=== PATIENT | female | born 1985 | race Caucasian/White ===

== ENCOUNTER 2017-02-26 12:21 | Emergency (ER) | payer OTHER ==
[~2017-02-26] VITALS: Ht 162.6 cm; Wt 59.0 kg
[2017-02-26] MEDS ORDERED: SPRI28TA (12:34)
[2017-02-26] MEDS ORDERED: CLINDAMYCIN 150 MG CAP PO ONE (13:15)
[2017-02-26] MEDS ORDERED: IBUPROFEN 600 MG TAB PO ONE (14:15)
[2017-02-26] MEDS ORDERED: LIDOCAINE W/EPINEPHRINE 1% 20ML VIAL As Ordered ONE (14:27)
[2017-02-26] MEDS ORDERED: MORPHINE 2 MG/ML 1ML SYRINGE As Ordered ONE (14:27)
[2017-02-26] MEDS ORDERED: NORC1TAB4 PO (14:50)
[2017-02-26] MEDS ORDERED: CLEO300C2 PO (14:50)
[2017-02-26] MEDS ORDERED: PRED20TA PO (14:50)
[2017-02-26 15:00] VITALS: BP 141/88
[2017-02-26] MEDS ORDERED: LIDOCAINE W/EPINEPHRINE 1% 20ML VIAL SC ONE (15:00)
[2017-02-26] MEDS ORDERED: methylPREDNISolone INJ 125 MG/2 ML VIAL (J2930) IV ONE (15:00)
--- NOTE | 2017-02-26 21:35 | RO ---
DATE OF PROCEDURE IN THE ER: 02/26/2017 PREPROCEDURE DIAGNOSIS: Right peritonsillar abscess. POSTPROCEDURE DIAGNOSIS: Right peritonsillar abscess. OPERATIVE PROCEDURE: Incision and drainage. SURGEON: Tk Price MD GRAPHICS EDIT TECHNICIAN: ANESTHESIA: HISTORY: Humza Zaragoza is a 32-year-old female presents with a history of sore throat which has been going on for a week. She was managing it just with ibuprofen. She has not had a previous problem with this. It is worse on the right side. It does hurt and is worse when it swallows. She has no fever. Otherwise she is healthy. Examinations shows that there is swelling of the right peritonsillar area. I infiltrated the area with lidocaine and epinephrine. I did an aspiration. There was pus in the area so I did an incision and drainage and drained a small amount of purulent fluid from the area. The patient was discharged after recieving IV steroids and clindamycin. Discharged home on oral clindamycin and some steroids. The patient to return if the problem persists.
== END 2017-02-26 15:09 | disposition home or self-care (01) ==
LOC: M ED 13:37
DX: J36 Peritonsillar abscess (principal)

== ENCOUNTER 2017-07-16 17:10 | Emergency (ER) | payer OTHER ==
[~2017-07-16] VITALS: Ht 162.6 cm; Wt 61.3 kg
[~2017-07-16 17:10] MED LIST: CLEO300C2 PO; NORC1TAB4 PO; PRED20TA PO; SPRI28TA
[2017-07-16] MEDS ORDERED: ZYRT10CA PO (17:26)
[2017-07-16] MEDS ORDERED: ACET1TAB17 PO (17:26)
[2017-07-16 19:32] LABS: BASO % 0.5 % (0.0-1.0); EOS # 0.3 K/mm3 (0.0-0.50); EOS % 5.3 % (0.0-3.0); LARGE UNSTAINED CELL # 0.1 K/mm3 (0.0-0.4); LARGE UNSTAINED CELL % 2.3 % (0.0-4.0); LYMPH # 2.1 K/mm3 (1.5-4.5); LYMPH % 36.3 % (24.0-44.0); MEAN CORPUSCULAR HEMOGLOBIN 32.5 pg (27.0-33.0); MEAN CORPUSCULAR HGB CONC 34.4 g/dl (32.0-36.5); MEAN CORPUSCULAR VOLUME 94.5 fl (80.0-96.0); MONO # 0.3 K/mm3 (0.0-0.8); MONO % 4.3 % (0.0-5.0); NEUTROPHILS % 51.3 % (36.0-66.0); PLATELET COUNT, AUTOMATED 294 k/mm3 (150-450); RED CELL DISTRIBUTION WIDTH 11.6 % (11.5-14.5); WHITE BLOOD COUNT 5.8 K/mm3 (4.0-10.0)
[2017-07-16 20:43] VITALS: BP 116/58
== END 2017-07-16 20:44 | disposition home or self-care (01) ==
LOC: M ED 17:10
DX: N93.9 Abnormal uterine and vaginal bleeding, unspecified (principal); J30.2 Other seasonal allergic rhinitis

== ENCOUNTER → 2017-09-20 | Outpatient (CLI) | payer OTHER ==
[~2017-09-20] MED LIST changes: +ACET1TAB17 PO; +ZYRT10CA PO
[2017-09-20 17:59] LABS: BASO % 0.3 % (0.0-1.0); EOS # 0.2 10^3/uL (0.0-0.50); EOS % 1.8 % (0.0-3.0); IMMATURE GRANULOCYTE % 0.4 % (0-0); LYMPH # 1.9 10^3/uL (1.5-4.5); LYMPH % 17.3 % (24.0-44.0); MEAN CORPUSCULAR HEMOGLOBIN 31.7 pg (27.0-33.0); MEAN CORPUSCULAR HGB CONC 33.6 g/dl (32.0-36.5); MEAN CORPUSCULAR VOLUME 94.5 fl (80.0-96.0); MONO # 0.6 10^3/uL (0.0-0.8); MONO % 5.8 % (0.0-5.0); NEUTROPHILS # 8.1 10^3/uL (1.8-7.7); NEUTROPHILS % 74.4 % (36.0-66.0); PLATELET COUNT, AUTOMATED 306 10^3/uL (150-450); RED CELL DISTRIBUTION WIDTH 11.5 % (11.5-14.5); WHITE BLOOD COUNT 10.9 10^3/uL (4.0-10.0)
[2017-09-23 10:52] LABS: HBsAg Prenatal NEGATIVE (NEGATIVE)
== END ==
LOC: M SMT 11:36
PROVIDERS: ATTEND Advanced Practice Midwife
DX: Z3A.09 9 weeks gestation of pregnancy (principal)

== ENCOUNTER → 2017-11-22 | Outpatient (CLI) | payer OTHER | LOC: M SMT 14:49 | DX: Z34.82 Encounter for supervision of other normal pregnancy, second trimester (principal); Z3A.18 18 weeks gestation of pregnancy ==

== ENCOUNTER → 2017-12-04 | Outpatient (CLI) | payer OTHER ==
[2017-12-04 18:58] LABS: HEMOGLOBIN 11.7 g/dl (12.0-16.0); MEAN CORPUSCULAR HGB CONC 33.4 g/dl (32.0-36.5); MEAN CORPUSCULAR VOLUME 95.6 fl (80.0-96.0); PLATELET COUNT, AUTOMATED 263 10^3/uL (150-450); RED BLOOD COUNT 3.66 10^6/uL (4.00-5.40); WHITE BLOOD COUNT 10.8 10^3/uL (4.0-10.0)
[2017-12-04 19:09] LABS: ALT/SGPT 24 U/L (12-78); AST/SGOT 13 U/L (7-37); BILIRUBIN,TOTAL 0.1 MG/DL (0.2-1.0); CREATININE FOR GFR 0.54 MG/DL (0.55-1.02); GLOMERULAR FILTRATION RATE > 60.0 (>60); LDH LACTATE DEHYDROGENASE 169 U/L (84-246); URIC ACID 2.8 MG/DL (2.6-6.0)
[2017-12-04 19:25] LABS: TOTAL PROTEIN,RANDOM URINE 11.2 MG/DL (0.0-12.0)
[2017-12-04 19:25] LABS: CREATININE,RANDOM URINE 67.3 MG/DL
== END ==
LOC: M SMT 13:36
DX: O16.2 Unspecified maternal hypertension, second trimester (principal); Z3A.21 21 weeks gestation of pregnancy
CPT/HCPCS: 84460

== ENCOUNTER → 2017-12-20 | Outpatient (CLI) | payer OTHER | LOC: M SMT 15:08 | DX: O46.8X2 Other antepartum hemorrhage, second trimester (principal); Z3A.23 23 weeks gestation of pregnancy ==

== ENCOUNTER → 2018-01-21 | Outpatient (CLI) | payer OTHER ==
[2018-01-21 19:19] LABS: HEMATOCRIT 30.2 % (36.0-47.0); HEMOGLOBIN 10.2 g/dl (12.0-16.0); MEAN CORPUSCULAR HEMOGLOBIN 32.3 pg (27.0-33.0); MEAN CORPUSCULAR HGB CONC 33.8 g/dl (32.0-36.5); MEAN CORPUSCULAR VOLUME 95.6 fl (80.0-96.0); PLATELET COUNT, AUTOMATED 221 10^3/uL (150-450); RED BLOOD COUNT 3.16 10^6/uL (4.00-5.40); RED CELL DISTRIBUTION WIDTH 11.9 % (11.5-14.5); WHITE BLOOD COUNT 10.3 10^3/uL (4.0-10.0)
[2018-01-21 19:38] LABS: GLUCOSE CHALLENGE TEST 1 HOUR 122 MG/DL (LESS THAN 140)
[2018-01-22 09:15] LABS: RH ONLY RHOGAM 1 1
== END ==
LOC: M SMT 14:15
DX: Z34.82 Encounter for supervision of other normal pregnancy, second trimester (principal)
CPT/HCPCS: 82950

== ENCOUNTER → 2018-02-11 | Outpatient (CLI) | payer OTHER | LOC: M SMT 14:46 | DX: O43.892 Other placental disorders, second trimester (principal); Z3A.30 30 weeks gestation of pregnancy ==

== ENCOUNTER → 2018-03-25 | Outpatient (REF) | payer OTHER | LOC: M LAB REF 16:54 | DX: Z34.83 Encounter for supervision of other normal pregnancy, third trimester (principal) | CPT/HCPCS: 87081; 87186 ==

== ENCOUNTER 2018-04-22 00:29 | Inpatient (IN) | payer OTHER ==
[2018-04-22] MEDS: LR 1,000 ML IV (01:11)
[2018-04-22] MEDS: LACTATED RINGER'S 1000 ML IV (01:11)
[2018-04-22] MEDS: PENICILLIN G POTASSIUM IV 5 MU in D5W MINI-BAG PLUS 100 ML IV (01:11)
[2018-04-22 01:50] LABS: HEMOGLOBIN 10.8 g/dl (12.0-15.5); MEAN CORPUSCULAR HEMOGLOBIN 32.9 pg (27.0-33.0); MEAN CORPUSCULAR HGB CONC 33.8 g/dl (32.0-36.5); MEAN CORPUSCULAR VOLUME 97.6 fl (80.0-96.0); PLATELET COUNT, AUTOMATED 182 10^3/uL (150-450); RED BLOOD COUNT 3.28 10^6/uL (4.00-5.40); RED CELL DISTRIBUTION WIDTH 12.4 % (11.5-14.5); WHITE BLOOD COUNT 11.7 10^3/uL (4.0-10.0)
[2018-04-22 02:10] LABS: AMPHETAMINES URINE REFLEX NEGATIVE (NEGATIVE); BARBITURATES URINE REFLEX NEGATIVE (NEGATIVE); BENZODIAZEPINES URINE REFLEX NEGATIVE (NEGATIVE); CANNABINOIDS URINE REFLEX NEGATIVE (NEGATIVE); COCAINE METABOLITE URINE REFLE NEGATIVE (NEGATIVE); METHADONE URINE REFLEX NEGATIVE (NEGATIVE); OPIATES URINE REFLEX NEGATIVE (NEGATIVE); PHENCYCLIDINE URINE REFLEX NEGATIVE (NEGATIVE)
[2018-04-22 02:16] LABS: ALT/SGPT 17 U/L (12-78); AST/SGOT 15 U/L (7-37); BILIRUBIN,TOTAL 0.1 MG/DL (0.2-1.0); CREATININE FOR GFR 0.58 MG/DL (0.55-1.30); GLOMERULAR FILTRATION RATE > 60.0 (>60); LDH LACTATE DEHYDROGENASE 156 U/L (84-246)
[2018-04-22] MEDS ORDERED: FENTANYL 2MCG/ML ROPIVACAINE 0.2% IN 0.9% NACL 200ML IVBAG As Ordered (03:12)
[2018-04-22] MEDS ORDERED: FENTANYL/ROPIVACAINE/NACL BAG 200 ML EPIDURAL (03:44)
[2018-04-22] MEDS ORDERED: REFRIGERATOR IV KEYS XX (03:44)
[2018-04-22] MEDS ORDERED: EPIDURAL/PCA KEYS XX (03:44)
[2018-04-22] MEDS ORDERED: ePHEDrine SULFATE 25 MG/5 ML(5MG/ML) SYRINGE IV (03:44)
[2018-04-22] MEDS ORDERED: EPIDURAL COMMENT XX (03:44)
[2018-04-22] MEDS ORDERED: diphenhydrAMINE INJ 50MG/ML VIAL (J1200) IV (03:44)
[2018-04-22] MEDS ORDERED: ONDANSETRON 4MG/2ML VIAL (J2405) IV (03:44)
[2018-04-22] MEDS ORDERED: NALOXONE INJ 0.4 MG/1 ML VIAL (J2310) IV (03:44)
[2018-04-22] MEDS ORDERED: LACTATED RINGER'S 1000 ML IV (03:44)
[2018-04-22] MEDS ORDERED: ePHEDrine SULFATE 25 MG/5 ML(5MG/ML) SYRINGE As Ordered (04:25)
[2018-04-22] MEDS: PENICILLIN G POTASSIUM IV 2.5 MU in APPROPRIATE DILUENT 1 EA IV ×2 (04:47→08:59)
[2018-04-22] MEDS ORDERED: OXYTOCIN 30 UNITS IN 0.9% NaCl 500ML IV BAG (J2590) As Ordered (09:06)
[2018-04-22] MEDS ORDERED: OXYTOCIN DRIP 30 UNITS in APPROPRIATE DILUENT 1 EA IV (09:45)
[2018-04-22 11:49] LABS: CORD GAS ABE V -8.4; CORD GAS HCO3 V 19.4 MEQ/L; CORD GAS O2 SAT V 42.3 %; CORD GAS PCO2 V 48.5 mmHg; CORD GAS PH V 7.221 UNITS; CORD GAS PO2 V 23.4 mmHg; CORD GAS SBC V 16.6 MEQ/L; CORD GAS TCO2 V 20.9 MEQ/L
[2018-04-22 11:52] LABS: CORD GAS O2 SAT A 31.5 %; CORD GAS PCO2 A 62.1 mmHg; CORD GAS PH A 7.146 UNITS; CORD GAS PO2 A 21.1 mmHg; CORD GAS SBC A 15.9 MEQ/L; CORD GAS TCO2 A 22.9 MEQ/L
[2018-04-22] MEDS: OXYTOCIN DRIP 30 UNITS in APPROPRIATE DILUENT 1 EA IV (12:37)
[2018-04-22] MEDS ORDERED: MOM 30ML SUSPENSION UDC PO (12:45)
[2018-04-22] MEDS ORDERED: MEASLES,MUMPS,RUBELLA VACCINE INJ (MMR-II) (90707) SC (12:45)
[2018-04-22] MEDS ORDERED: ANUSOL HC CREAM 30GM TOP (12:45)
[2018-04-22] MEDS ORDERED: DIBUCAINE 1% OINTMENT 30GM TOP (12:45)
[2018-04-22] MEDS ORDERED: METHYLERGONOVINE MALEATE 0.2 MG TAB PO (12:45)
[2018-04-22] MEDS ORDERED: DOCUSATE SODIUM 100 MG CAP PO (12:45)
[2018-04-23] MEDS: IBUPROFEN 800 MG TAB PO (08:00)
[2018-04-23] MEDS: PRENATAL VITAMINS CHEWABLE TABLET PO (08:00)
[2018-04-23] MEDS: ACETAMINOPHEN 500 MG TAB PO ×2 (09:42→20:20)
[2018-04-23 14:02] LABS: FETAL SCREEN PROF. 1 1
[2018-04-23] MEDS: RHOGAM 300 MCG (1500 IU) INJ (J2790) IM (14:14)
[2018-04-24] MEDS: ACETAMINOPHEN 500 MG TAB PO (03:21)
[2018-04-24] MEDS: PRENATAL VITAMINS CHEWABLE TABLET PO (08:03)
[2018-04-24] MEDS: ADACEL/BOOSTRIX VACCINE (DIPHTH/PERTUSS/ACELL/TETANUS)0.5ML SYR (90715) IM (08:04)
== END 2018-04-24 10:30 | disposition home or self-care (01) | DRG 775 ==
LOC: M LDO 00:29 → M LDI 01:04 → M OBS 14:41
PROC: 10E0XZZ Delivery of Products of Conception, External Approach (ICD-10-PCS; principal; 2018-04-22)
PROC: 0HQ9XZZ Repair Perineum Skin, External Approach (ICD-10-PCS; 2018-04-22)
DX: O48.0 Post-term pregnancy (principal); O99.824 Streptococcus B carrier state complicating childbirth; Z3A.40 40 weeks gestation of pregnancy; O70.0 First degree perineal laceration during delivery; Z37.0 Single live birth

== ENCOUNTER → 2019-03-09 | Outpatient (REF) | payer OTHER ==
[~2019-03-09] MED LIST changes: -ACET1TAB17 PO; +ACET1TAB55 PO; +FERR325T3 PO; +IBUP-1114 PO; +MAPA500T2 PO; -NORC1TAB4 PO; +NORC1TAB7 PO; +PRENTAB55 PO; +VITA1TAB23 PO
[2019-03-11 14:34] LABS: HPV HYBRID CAPTURE II Negative (Negative)
== END ==
LOC: M LAB REF 17:16
PROVIDERS: ATTEND Obstetrics & Gynecology
DX: Z12.4 Encounter for screening for malignant neoplasm of cervix (principal)
CPT/HCPCS: 87624; G0123

== ENCOUNTER → 2019-05-12 | Outpatient (REF) | payer OTHER ==
[2019-05-12 12:01] LABS: BASO % 0.7 % (0.0-1.0); EOS # 0.2 10^3/uL (0.0-0.50); EOS % 2.6 % (0.0-3.0); HEMOGLOBIN 13.4 g/dl (12.0-15.5); LYMPH % 34.2 % (24.0-44.0); MEAN CORPUSCULAR HEMOGLOBIN 32.1 pg (27.0-33.0); MEAN CORPUSCULAR HGB CONC 32.7 g/dl (32.0-36.5); MEAN CORPUSCULAR VOLUME 98.1 fl (80.0-96.0); MONO # 0.4 10^3/uL (0.0-0.8); MONO % 6.1 % (0.0-5.0); NEUTROPHILS # 3.2 10^3/uL (1.8-7.7); NEUTROPHILS % 56.2 % (36.0-66.0); PLATELET COUNT, AUTOMATED 280 10^3/uL (150-450); RED BLOOD COUNT 4.18 10^6/uL (4.00-5.40); WHITE BLOOD COUNT 5.7 10^3/uL (4.0-10.0)
[2019-05-12 12:28] LABS: ALBUMIN 3.8 GM/DL (3.2-5.2); ALT/SGPT 22 U/L (12-78); BILIRUBIN,TOTAL 0.4 MG/DL (0.2-1.0); BLOOD UREA NITROGEN 14 MG/DL (7-18); CALCIUM LEVEL 9.2 MG/DL (8.5-10.1); CARBON DIOXIDE LEVEL 28 MEQ/L (21-32); CHLORIDE LEVEL 106 MEQ/L (98-107); CREATININE FOR GFR 0.86 MG/DL (0.55-1.30); GLOMERULAR FILTRATION RATE > 60.0 (>60); GLUCOSE, FASTING 86 MG/DL (70-100); POTASSIUM SERUM 4.5 MEQ/L (3.5-5.1); SODIUM LEVEL 139 MEQ/L (136-145); TOTAL PROTEIN 7.9 GM/DL (6.4-8.2)
[2019-05-13 10:37] LABS: HEPATITIS B SURFACE ANTIBODY NEGATIVE (POSITIVE)
[2019-05-13 10:47] LABS: HEPATITIS B SURFACE ANTIGEN NEGATIVE (NEGATIVE)
[2019-05-13 11:16] LABS: HEPATITIS C VIRUS ABY INDEX 0.1 INDEX (<0.8)
== END ==
LOC: M LABDRAWC 11:25
PROVIDERS: ATTEND Dermatology
DX: Z79.899 Other long term (current) drug therapy (principal); D22.5 Melanocytic nevi of trunk; L81.4 Other melanin hyperpigmentation; D18.01 Hemangioma of skin and subcutaneous tissue; Z71.89 Other specified counseling; L40.0 Psoriasis vulgaris

== ENCOUNTER → 2020-06-14 | Outpatient (REF) | payer OTHER ==
[~2020-06-14] MED LIST changes: +ASCO250T20 PO; -VITA1TAB23 PO
[2020-07-11 12:34] LABS: HEMATOCRIT 39.3 % (36.0-47.0); HEMOGLOBIN 12.8 g/dl (12.0-15.5); MEAN CORPUSCULAR HEMOGLOBIN 31.9 pg (27.0-33.0); MEAN CORPUSCULAR HGB CONC 32.6 g/dl (32.0-36.5); PLATELET COUNT, AUTOMATED 275 10^3/uL (150-450); RED BLOOD COUNT 4.01 10^6/uL (4.00-5.40); WHITE BLOOD COUNT 6.9 10^3/uL (4.0-10.0)
[2020-08-30 11:52] LABS: GLUCOSE, FASTING SEE SEPARATE REPORT
== END ==
LOC: M LABDRAWC 08:44
PROVIDERS: ATTEND Physician Assistant
DX: Z79.899 Other long term (current) drug therapy (principal)

== ENCOUNTER → 2020-09-28 | Outpatient (REF) | payer OTHER | LOC: M PLALAB 15:24 | PROVIDERS: ATTEND Specialist | DX: N92.6 Irregular menstruation, unspecified (principal) ==

== ENCOUNTER → 2020-09-30 | Outpatient (CLI) | payer OTHER | LOC: M PLALAB 08:13 | PROVIDERS: ATTEND Specialist | DX: N92.6 Irregular menstruation, unspecified (principal) ==

== ENCOUNTER → 2020-10-14 | Outpatient (CLI) | payer OTHER ==
[~2020-10-14] MED LIST changes: +ETAN50PE; +PRENTAB53 PO
== END ==
LOC: M LABSMTC 10:25
PROVIDERS: ATTEND Anesthesiology
DX: Z01.812 Encounter for preprocedural laboratory examination (principal); Z20.828 Contact with and (suspected) exposure to other viral communicable diseases

== ENCOUNTER 2020-10-18 09:02 | Day surgery (SDC) | payer OTHER ==
[~2020-10-18] VITALS: Ht 162.6 cm; Wt 72.5 kg
[~2020-10-18 09:02] MED LIST changes: +DOXYCYCLINE HYCLATE 100MG TABLET PO ONE; +LR 1,000 ML IV ONE; +RHOGAM 300 MCG (1500 IU) INJ (J2790) IM ONE
[2020-10-18 09:35] LABS: HEMATOCRIT 37.2 % (36.0-47.0); HEMOGLOBIN 12.1 g/dl (12.0-15.5); MEAN CORPUSCULAR HEMOGLOBIN 31.3 pg (27.0-33.0); MEAN CORPUSCULAR HGB CONC 32.5 g/dl (32.0-36.5); MEAN CORPUSCULAR VOLUME 96.1 fl (80.0-96.0); PLATELET COUNT, AUTOMATED 251 10^3/uL (150-450); RED BLOOD COUNT 3.87 10^6/uL (4.00-5.40); WHITE BLOOD COUNT 5.5 10^3/uL (4.0-10.0)
[2020-10-18] MEDS ORDERED: LIDOCAINE 2% 100MG/5ML SDV (FOR ANES.) As Ordered ONE (10:35)
[2020-10-18] MEDS ORDERED: dexameTHASONE 4 MG/ML 1ML VIAL (J1100 PER 1MG) As Ordered ONE (10:35)
[2020-10-18] MEDS ORDERED: ONDANSETRON 4MG/2ML VIAL As Ordered ONE (10:35)
[2020-10-18] MEDS ORDERED: propofoL 200 MG/20 ML VIAL As Ordered ONE (10:35)
[2020-10-18] MEDS ORDERED: MIDAZOLAM INJ 2MG/2ML VIAL (J2250 PER 1MG) As Ordered ONE (10:35)
[2020-10-18] MEDS ORDERED: METOCLOPRAMIDE INJ 10MG/2ML VIAL (J2765 PER 1) As Ordered ONE (10:35)
[2020-10-18] MEDS ORDERED: KETOROLAC 60MG 2ML VIAL As Ordered ONE (10:35)
[2020-10-18] MEDS ORDERED: fentaNYL 100 MCG/2 ML INJECTION (J3010) As Ordered ONE (10:35)
[2020-10-18] MEDS ORDERED: fentaNYL 100 MCG/2 ML INJECTION (J3010) IV PRN (12:30)
[2020-10-18] MEDS ORDERED: METOCLOPRAMIDE INJ 10MG/2ML VIAL (J2765 PER 1) IV PRN (12:30)
[2020-10-18] MEDS ORDERED: RHOGAM 300 MCG (1500 IU) INJ (J2790) IM ONE (12:30)
[2020-10-18] MEDS ORDERED: ONDANSETRON 4MG/2ML VIAL IV PRN (12:30)
[2020-10-18] MEDS ORDERED: PERCOCET 5MG/325MG TAB PO PRN (12:30)
[2020-10-18] MEDS ORDERED: LR 1,000 ML IV SCH ×2 (12:30)
[2020-10-18] MEDS ORDERED: ACETAMINOPHEN 500 MG TAB PO ONE (12:30)
[2020-10-18] MEDS ORDERED: DOXYCYCLINE HYCLATE 100MG TABLET PO ONE (12:30)
[2020-10-18 13:15] VITALS: BP 122/76
--- NOTE | 2020-10-18 13:29 | ROOPDOC ---
[facility] Report Of Operation Report of Operation DATE OF PROCEDURE: 10/18/20 PREPROCEDURE DIAGNOSES: embryonic demise, 7-8 weeks. POSTPROCEDURE DIAGNOSES: same. PROCEDURE: D+E+C. SURGEON: Gentry Morgan MD ANESTHESIA: general via LMA. ESTIMATED BLOOD LOSS: Approximately 20 mL. COMPLICATIONS: none FINDINGS: Moderate amount of POC's, normal uterus DESCRIPTION OF PROCEDURE: Patient was taken to the operating room and placed in dorsal lithotomy position. She was prepped and draped in sterile fashion. A speculum was placed in the vagina. The anterior lip of the cervix was grasped with a tenaculum. Cervix was dilated with tapered dilators. A #9 mm suction curet was placed through the internal os. Suction device was activated and the curette was gently rotated until products of conception were noted coming through the suction tubing. Sharp curettage was performed. The uterine cavity was deemed empty. . Good hemostasis was noted. Sponge and instrument counts are correct. The patient went to recovery room in stable condition. GENTRY MORGAN MD Oct 18, 2020 13:29
== END 2020-10-18 13:39 | disposition home or self-care (01) ==
LOC: M SDC 09:02
PROVIDERS: ATTEND Specialist
DX: O02.1 Missed abortion (principal)
CPT/HCPCS: 36415; 59820; 85027; 88305; J1100; J1885; J2250; J2405; J2765; J3010

== ENCOUNTER → 2021-01-08 | Outpatient (CLI) | payer OTHER ==
[~2021-01-08] MED LIST changes: -DOXYCYCLINE HYCLATE 100MG TABLET PO ONE; -LR 1,000 ML IV ONE; -RHOGAM 300 MCG (1500 IU) INJ (J2790) IM ONE
== END ==
LOC: M LAB 09:35
PROVIDERS: ATTEND Obstetrics & Gynecology
DX: Z32.00 Encounter for pregnancy test, result unknown (principal)

== ENCOUNTER → 2021-01-10 | Outpatient (CLI) | payer OTHER | LOC: M LAB 08:01 | PROVIDERS: ATTEND Advanced Practice Midwife | DX: O26.851 Spotting complicating pregnancy, first trimester (principal); Z3A.00 Weeks of gestation of pregnancy not specified ==

== ENCOUNTER → 2021-01-11 | Outpatient (CLI) | payer OTHER ==
--- NOTE | 2021-01-11 15:44 | REP ---
INDICATION: 020.0 THREATENED /VAG BLEEDING/RISING HCG COMPARISON: None. TECHNIQUE: Transabdominal 1st trimester obstetrical ultrasound with color Doppler evaluation. FINDINGS: Single live early intrauterine is appreciated. Gestational sac with yolk sac and pole identified. [place]-rump length of 11 mm corresponds to 7 weeks 2 days gestational age with estimated date of delivery 08/28/2021. heart rate equals 146 beats per minute. Small subchorionic hemorrhage measuring 27 x 7 x 9 mm is suggested. IMPRESSION: Single live early intrauterine at 7 weeks 2 days gestational age. Complete anatomical assessment should be performed and 19-20 weeks. Small subchorionic hemorrhage. <Electronically signed by Rock Wylie > 01/11/21 [id number]
== END ==
LOC: M WHC 14:34
PROVIDERS: ATTEND Advanced Practice Midwife
DX: O20.0 Threatened abortion (principal); Z3A.01 Less than 8 weeks gestation of pregnancy

== ENCOUNTER → 2021-01-12 | Outpatient (REF) | payer OTHER | LOC: M PLALAB 08:12 | PROVIDERS: ATTEND Advanced Practice Midwife | DX: O20.0 Threatened abortion (principal) ==

== ENCOUNTER → 2021-01-25 | Outpatient (REF) | payer OTHER ==
[2021-01-25 18:13] LABS: HEMATOCRIT 36.9 % (36.0-47.0); HEMOGLOBIN 12.6 g/dl (12.0-15.5); MEAN CORPUSCULAR HEMOGLOBIN 32.2 pg (27.0-33.0); MEAN CORPUSCULAR HGB CONC 34.1 g/dl (32.0-36.5); MEAN CORPUSCULAR VOLUME 94.4 fl (80.0-96.0); PLATELET COUNT, AUTOMATED 265 10^3/uL (150-450); RED BLOOD COUNT 3.91 10^6/uL (4.00-5.40); WHITE BLOOD COUNT 10.7 10^3/uL (4.0-10.0)
[2021-01-25 19:28] LABS: HEPATITIS C VIRUS ABY INDEX < 0.0 INDEX (<0.8); HIV 1&2 SCREEN CENTAUR NEGATIVE (NEGATIVE)
== END ==
LOC: M PLALAB 14:26
PROVIDERS: ATTEND Specialist
DX: Z34.81 Encounter for supervision of other normal pregnancy, first trimester (principal)

== ENCOUNTER → 2021-02-22 | Outpatient (CLI) | payer OTHER | LOC: M WHC 14:59 | PROVIDERS: ATTEND Obstetrics & Gynecology | DX: Z53.9 Procedure and treatment not carried out, unspecified reason (principal) ==

== ENCOUNTER → 2021-04-05 | Outpatient (CLI) | payer OTHER ==
--- NOTE | 2021-04-05 12:11 | REP ---
INDICATION: ANATOMY COMPARISON: 01/11/2021 TECHNIQUE: Transabdominal obstetrical ultrasound with color Doppler evaluation. FINDINGS: Examination demonstrates a single live intrauterine in cephalic presentation. motion is identified by technologist. Placenta is noted anterior and grade 1 without evidence for placenta previa or abruption. Amniotic fluid volume is normal. Cervix measures 3.7 cm in length and appears closed.. Gestational age by LMP 19 weeks 2 days with GIANNI 08/28/2021. Gestational age by current measurements 19 weeks 6 days with GIANNI 08/24/2021. FHR equals 156 beats per minute. Estimated weight 324 grams (83rdpercentile). Anatomical assessment demonstrates normal structures including cranium, choroid plexus, cavum, cerebellum/posterior fossa, facial features, lungs, four-chamber heart/ventricular outflow tracts, diaphragm, stomach, cord insertion/three-vessel cord, kidneys/bladder, spine, and extremities. IMPRESSION: Single live intrauterine in cephalic presentation. Appropriate estimated weight and growth. Anatomical assessment is complete and normal. <Electronically signed by Rock Wylie > 04/05/21 [id number]
== END ==
LOC: M WHC 09:02
PROVIDERS: ATTEND Obstetrics & Gynecology
DX: Z36.89 Encounter for other specified antenatal screening (principal); Z3A.19 19 weeks gestation of pregnancy

== ENCOUNTER → 2021-05-22 | Outpatient (CLI) | payer OTHER ==
[2021-05-22 11:31] LABS: HEMATOCRIT 33.2 % (36.0-47.0); HEMOGLOBIN 10.9 g/dl (12.0-15.5); MEAN CORPUSCULAR HEMOGLOBIN 32.1 pg (27.0-33.0); MEAN CORPUSCULAR HGB CONC 32.8 g/dl (32.0-36.5); MEAN CORPUSCULAR VOLUME 97.6 fl (80.0-96.0); PLATELET COUNT, AUTOMATED 232 10^3/uL (150-450); WHITE BLOOD COUNT 12.2 10^3/uL (4.0-10.0)
== END ==
LOC: M PLALAB 07:45
PROVIDERS: ATTEND Advanced Practice Midwife
DX: O09.522 Supervision of elderly multigravida, second trimester (principal); Z3A.00 Weeks of gestation of pregnancy not specified
CPT/HCPCS: 36415; 82950; 85027; 86850; 86900; 86901; J2790

== ENCOUNTER → 2021-07-04 | Outpatient (REF) | payer OTHER ==
[2021-07-04 16:51] LABS: BASO % 0.3 % (0.0-1.0); EOS # 0.2 10^3/uL (0.0-0.5); EOS % 1.7 % (0.0-3.0); HEMATOCRIT 33.3 % (36.0-47.0); HEMOGLOBIN 10.4 g/dl (12.0-15.5); LYMPH # 1.7 10^3/uL (1.5-5.0); LYMPH % 14.6 % (24.0-44.0); MEAN CORPUSCULAR HEMOGLOBIN 31.6 pg (27.0-33.0); MEAN CORPUSCULAR HGB CONC 31.2 g/dl (32.0-36.5); MEAN CORPUSCULAR VOLUME 101.2 fl (80.0-96.0); MONO # 0.5 10^3/uL (0.0-0.8); MONO % 4.5 % (2.0-8.0); NEUTROPHILS % 77.9 % (36.0-66.0); PLATELET COUNT, AUTOMATED 226 10^3/uL (150-450); RED BLOOD COUNT 3.29 10^6/uL (4.00-5.40); WHITE BLOOD COUNT 11.5 10^3/uL (4.0-10.0)
[2021-07-04 17:29] LABS: ALBUMIN 2.7 GM/DL (3.2-5.2); ALT/SGPT 15 U/L (12-78); BILIRUBIN,TOTAL 0.3 MG/DL (0.2-1.0); BLOOD UREA NITROGEN 7 MG/DL (7-18); CALCIUM LEVEL 8.4 MG/DL (8.5-10.1); CARBON DIOXIDE LEVEL 22 MEQ/L (21-32); CHLORIDE LEVEL 109 MEQ/L (98-107); CREATININE FOR GFR 0.55 MG/DL (0.55-1.30); GLOMERULAR FILTRATION RATE > 60.0 (>60); GLUCOSE, FASTING 108 MG/DL (70-100); POTASSIUM SERUM 4.5 MEQ/L (3.5-5.1); SODIUM LEVEL 137 MEQ/L (136-145); TOTAL PROTEIN 6.4 GM/DL (6.4-8.2)
== END ==
LOC: M LABDRAWC 15:42
PROVIDERS: ATTEND Dermatology
DX: Z79.899 Other long term (current) drug therapy (principal)

== ENCOUNTER → 2021-08-03 | Outpatient (REF) | payer OTHER | LOC: M SFHCWAGY 17:03 | PROVIDERS: ATTEND Advanced Practice Midwife | DX: O09.523 Supervision of elderly multigravida, third trimester (principal) ==

== ENCOUNTER 2021-08-15 12:48 | Outpatient (CLI) | payer OTHER ==
[~2021-08-15] VITALS: Ht 162.6 cm; Wt 89.4 kg
[2021-08-15] MEDS ORDERED: HOME MED LIST COMPLETE! XX SCH (13:10)
[2021-08-15 13:12] VITALS: BP 129/73
[2021-08-15] MEDS ORDERED: TERBUTALINE SULFATE 1 MG/ML VIAL (J3105) SC STA (14:09)
[2021-08-15 14:22] VITALS: BP 134/71
--- NOTE | 2021-08-15 14:39 | HPEPDOC ---
Obstetrical History & Physical General Date of Admission History of Present Illness 36-year-old 3 para 1 at 38 weeks 1 day presents for external cephalic version. Chief Complaint: Other (External cephalic version) Information Provided By: Patient Age: 36 : 3 Livin Care Care: Good Care Number of Visits: 12 Dating Final EDC by: LMP EGA at Admission: 38 Past Medical History Past Obstetrical History : Date of Delivery: Apr 22, 2018 Type of Delivery: Spontaneous Vaginal Del. Sex of Infant: Male Complications: No Past Medical History Surgical History: Dilatation and Curettage Family History Significant Family History: Cancer, Heart disease Social History Marital Status: Psychosocial History: No pertinent psych hx * Smoker: non-smoker Alcohol: Denies Drugs: denies Allergies Coded Allergies: No Known Allergies (Unverified , 08/15/21) Medications Scheduled Etanercept (Enbrel Sureclick) 50 Mg/1 Ml Pen.injctr, QWEEK Vit,Calc76/Iron/Folic (Prenatabs Rx Tablet) 1 Each Tablet, 1 TAB PO DAILY Physical Examination Physical Examination GENERAL: Alert and oriented times three. BREAST: . ABDOMEN: Gravid and non-tender to touch. FETUS: Is vertex (VTX) by sterile vaginal examination (SVE), fetus is breech by ultrasound. HEART RATE: Regular rate and rhythm. LUNGS: Clear to auscultation (CTA). Vital Signs/I&O Vital Signs Date Time Temp Pulse Resp B/P (MAP) Pulse Ox O2 Delivery O2 Flow Rate FiO2 08/15/21 13:52 99.1 08/15/21 13:12 90 20 129/73 (91) Pertinent Laboratoy Data Blood Type: O- RBC Antibody Screen: Negative HIV: Negative Hepatitis B: Negative Hepatitis C: Negative Rapid Plasma Reagin: Nonreactive Rubella: Immune Chlamydia/Gonorrhea: Negative Group B Streptococcus: Positive Glucose Tolerance Test: 98 Anatomy Ultrasound Placenta Location: Anterior Normal Anatomy: Yes Placenta Previa: No Vaginal Examination Position: Breech (sacrum) Assessment Variability: Moderate Accelerations: Positive Decelerations: None Tocometer Contractions: No Assessment/Plan Assessment 36-year-old 3 para 1 at 38 weeks 1 day with breech presentation Reassuring status Plan Start IV CBC to hold Terbutaline 0.2 Patient been thoroughly counseled regarding on presentation. I discussed external cephalic version versus primary section. After consultation with risk of each patient has decided for external cephalic version. Consents have been signed. CHERELLE BOWMAN MD. Aug 15, 2021 14:39
[2021-08-15 15:12] VITALS: BP 134/77
[2021-08-15 16:18] VITALS: BP 138/80
== END 2021-08-15 16:33 | disposition home or self-care (01) ==
LOC: M LDO 12:48
PROVIDERS: ATTEND Obstetrics & Gynecology
DX: O32.1XX0 Maternal care for breech presentation, not applicable or unspecified (principal); Z3A.38 38 weeks gestation of pregnancy; O99.820 Streptococcus B carrier state complicating pregnancy
CPT/HCPCS: 59025; 59412; 76815; G0378; G0463; J3105

== ENCOUNTER → 2021-08-16 | Outpatient (CLI) | payer OTHER | LOC: M LABSMTC 10:19 | PROVIDERS: ATTEND Anesthesiology | DX: Z01.812 Encounter for preprocedural laboratory examination (principal); Z20.822 Contact with and (suspected) exposure to COVID-19 ==

== ENCOUNTER 2021-08-21 05:42 | Inpatient (IN) | payer OTHER ==
[~2021-08-21] VITALS: Ht 162.6 cm; Wt 85.8 kg
[2021-08-21] VITALS (9 sets, daily range): BP systolic 117–155; BP diastolic 63–97
[2021-08-21] MEDS ORDERED: LR 1,000 ML IV SCH ×2 (05:55→09:25)
[2021-08-21] MEDS ORDERED: ceFAZolin SOD 2 GM in IV 1 EA IV ONE (05:55)
[2021-08-21] MEDS ORDERED: BICITRA 30ML SOLN UDC PO ONE (05:55)
[2021-08-21] MEDS ORDERED: LR 1,000 ML IV ONE (05:55)
[2021-08-21] MEDS ORDERED: HOME MED LIST COMPLETE! XX SCH (06:00)
[2021-08-21 06:56] LABS: HEMATOCRIT 31.8 % (36.0-47.0); HEMOGLOBIN 10.4 g/dl (12.0-15.5); MEAN CORPUSCULAR HEMOGLOBIN 31.7 pg (27.0-33.0); MEAN CORPUSCULAR HGB CONC 32.7 g/dl (32.0-36.5); PLATELET COUNT, AUTOMATED 200 10^3/uL (150-450); RED BLOOD COUNT 3.28 10^6/uL (4.00-5.40); WHITE BLOOD COUNT 9.4 10^3/uL (4.0-10.0)
[2021-08-21] MEDS ORDERED: METOCLOPRAMIDE INJ 10MG/2ML VIAL (J2765 PER 1) IV PRN (08:16)
[2021-08-21] MEDS ORDERED: ONDANSETRON 4MG/2ML VIAL IV PRN ×3 (08:16→09:25)
[2021-08-21] MEDS ORDERED: NALBUPHINE HCL 10 MG/ML AMP (J2300) IV PRN ×2 (08:16→09:25)
[2021-08-21] MEDS ORDERED: NALOXONE INJ 0.4MG/1ML VIAL (J2310 PER 1MG) IV PRN ×2 (08:16)
[2021-08-21] MEDS ORDERED: diphenhydrAMINE 50MG/ML VIAL (J1200) IV PRN (08:16)
[2021-08-21] MEDS ORDERED: MORPHINE PRES-FREE INJ 10 MG/10 ML VIAL (J2274) As Ordered ONE (08:22)
[2021-08-21] MEDS ORDERED: OXYTOCIN INJ 10 UNITS/ML VIAL (J2590) As Ordered ONE (08:22)
[2021-08-21] MEDS ORDERED: MOM 30ML SUSPENSION UDC PO PRN (08:25)
[2021-08-21] MEDS ORDERED: OXYTOCIN DRIP 30 UNITS in IV 1 EA IV SCH (08:25)
[2021-08-21] MEDS ORDERED: RHOGAM 300 MCG (1500 IU) INJ (J2790) IM SCH (08:25)
[2021-08-21] MEDS ORDERED: PERCOCET 5MG/325MG TAB PO PRN ×2 (08:25)
[2021-08-21] MEDS ORDERED: SIMETHICONE 80MG CHEW TAB PO PRN (09:00)
[2021-08-21] MEDS ORDERED: ONDANSETRON 4MG/2ML VIAL As Ordered ONE (09:20)
[2021-08-21] MEDS ORDERED: OXYTOCIN 30 UNITS IN 0.9% NaCl 500ML IV BAG (J2590) As Ordered ONE (09:46)
[2021-08-21] MEDS ORDERED: KETOROLAC 30 MG/ML 1ML VIAL As Ordered ONE (10:02)
[2021-08-21] MEDS: KETOROLAC 30 MG/ML 1ML VIAL IV SCH ×3 (10:06→22:00)
[2021-08-21] MEDS ORDERED: fentaNYL 100 MCG/2 ML INJECTION (J3010) As Ordered ONE (10:36)
[2021-08-21] MEDS: fentaNYL 100 MCG/2 ML INJECTION (J3010) IV PRN ×3 (10:41→11:01)
[2021-08-21] MEDS: DOCUSATE SODIUM 100MG CAPSULE PO SCH (12:41)
[2021-08-21] MEDS: PRENATAL VITAMINS CHEWABLE TABLET PO SCH (12:41)
[2021-08-21] MEDS: LR 1,000 ML IV SCH ×2 (14:21→22:00)
--- NOTE | 2021-08-21 15:05 | ROOPDOC ---
[facility] Report Of Operation Report of Operation DATE OF PROCEDURE: 08/21/21 SURGEON: Jody Flores M.D. [employer] OPERATOR: Deepa Redd ( essential for tissue retractions, exposure and delivery of ) PROCEDURE: Primary section PREOPERATIVE DIAGNOSIS: 1. Breech POSTOPERATIVE DIAGNOSIS: 1. Breech ANESTHESIA: Spinal ESTIMATED BLOOD LOSS: 500 mL URINE OUTPUT: 250 mL INTRAVENOUS FLUIDS: 800 mL of lactated Ringer's solution PREOPERATIVE ANTIBIOTICS:. 2 g of Ancef OPERATIVE FINDINGS: Liveborn male infant, Apgars 9 and 9. Weight 3940 g or 8 pounds 11 ounces SPECIMENS: None DESCRIPTION OF PROCEDURE: After informed consent was obtained and written consent was reviewed. The patient was brought to the operating room where spinal anesthesia was placed. She was then placed in the supine position with a left lateral tilt. Bar catheter was placed and to gravity. Patient was then prepped and draped in the normal sterile fashion. A timeout operating room was performed identifying the patient, procedure be performed as well as drug allergies. Anesthesia was tested and deemed to be adequate. Pfannenstiel skin incision was made and this was carried down to the underlying rectus fascia. The fascia was then scored and this incision was extended bilaterally. The fascia was then dissected off the underlying rectus muscle superiorly and inferiorly. The rectus muscles were then in the midline. The peritoneum is then entered. Vesicouterine peritoneum was then tented and excised and a bladder flap was created. Mobius retractor was then placed. Next, a curvilinear incision was then made in the lower uterine segment. Amniotomy was performed, productive, clear fluid. Lower extremities was delivered. was further delivered down to the level of the scapula where the upper extremity was delivered followed by delivery of the head. The cord was clamped x2. The infant was brought over to the warmer with a good cry. Placenta was drained and delivered grossly intact. The uterus was cleared of all clots and debris and the uterine incision was then closed using 0 Vicryl in a running locking fashion followed by a second layer of 0 Vicryl in a running nonlocking fashion for imbrication. The abdomen suctioned. Surgical sites reinspected and noted be hemostatic. The retractor was then removed. The anterior peritoneum was then reapproximated with 3-0 Vicryl. The rectus muscles were reapproximated 3-0 Vicryl. The fascia was then closed using 0 Vicryl in a running nonlocking fashion. The subcutaneous tissues was then irrigated and suctioned. Subcutaneous tissue was reapproximated using 3-0 Vicryl. Several subdermal stitch is placed using 3-0 Vicryl and the skin was closed with 4-0 Monocryl and subcuticular fashion. This incision was then cleaned and dried and was dressed. The patient was then taken to recovery in stable condition. All counts were correct. My hand frame surgical elastic knitter Deepa Redd played in an essential role during the operation. She assisted with tissue identification retraction, delivery of the , as well as wound closure. JODY FLORES MD. Aug 21, 2021 15:05
[2021-08-21] MEDS ORDERED: IBUP80TA PO (15:08)
[2021-08-21] MEDS ORDERED: PERCOCET PO (15:08)
[2021-08-22] MEDS: DOCUSATE SODIUM 100MG CAPSULE PO SCH ×3 (00:19→20:53)
[2021-08-22 02:19] VITALS: BP 110/59
[2021-08-22] MEDS: KETOROLAC 30 MG/ML 1ML VIAL IV SCH (04:54)
[2021-08-22 05:57] VITALS: BP 137/76
[2021-08-22] MEDS: PRENATAL VITAMINS CHEWABLE TABLET PO SCH (08:04)
[2021-08-22 09:15] LABS: HEMATOCRIT 24.7 % (36.0-47.0); MEAN CORPUSCULAR HEMOGLOBIN 31.6 pg (27.0-33.0); MEAN CORPUSCULAR HGB CONC 32.8 g/dl (32.0-36.5); MEAN CORPUSCULAR VOLUME 96.5 fl (80.0-96.0); PLATELET COUNT, AUTOMATED 145 10^3/uL (150-450); RED BLOOD COUNT 2.56 10^6/uL (4.00-5.40); WHITE BLOOD COUNT 6.7 10^3/uL (4.0-10.0)
[2021-08-22 09:19] LABS: HEMOGLOBIN 8.1 g/dl (12.0-15.5)
[2021-08-22 10:00] VITALS: BP 111/54
--- NOTE | 2021-08-22 11:45 | IPNPDOC ---
Progress Note Date of Service: Aug 22, 2021 Day#: 1 Progress Note SUBJECT: Patient is a 36-year-old G 3 P 1011 status post uncomplicated primary section at 38-6/7 weeks' doing well day #1. She has been ambulating, voiding spontaneously without issue and tolerating regular diet. Breast feeding without issue. Reports lochia is like a normal period. Patient is ambulating well. Reports some cramping, well controlled with medication. Voiding passing gas and ambulating without difficulty. OBJECTIVE: VITAL SIGNS: Within normal limits, afebrile. Alert and oriented times three. Breath sounds clear to auscultation. Heart rate: Regular rate and rhythm, no murmurs, rubs or gallops. Abdomen: Fundus firm at U-2. Soft, NTTP. Minimal to moderate lochia. ASSESSMENT: Patient is a 36-year-old G 3 P 1011 status post uncomplicated primary section for breech presentation. Doing well on day 1. Vitals within normal limits, afebrile, hemodynamically stable with no evidence of infection. PLAN: 1. Discharge to home tomorrow. 2. Percocet and Motrin for pain. 3. Encourage breast feeding and ambulation. VS, I&O, 24H, Fishbone Vital Signs/I&O Vital Signs Date Time Temp Pulse Resp B/P (MAP) Pulse Ox O2 Delivery O2 Flow Rate FiO2 08/22/21 10:00 98.7 97 16 111/54 (73) 96 Room Air I&O- Last 24 Hours up to 6 AM 08/22/21 06:00 Intake Total 5812 ml Output Total 1925 ml Balance 3887 ml Laboratory Data 24H LABS Laboratory Tests 2 08/22/21 08:45: Nucleated Red Blood Cells % (auto) 0.0 CBC/BMP Laboratory Tests 08/22/21 08:45 KENNETH CARLSON MD Aug 22, 2021 11:45
[2021-08-22] MEDS: IBUPROFEN 800 MG TAB PO SCH ×2 (12:18→20:53)
[2021-08-22 14:00] VITALS: BP 128/58
[2021-08-22 18:00] VITALS: BP 136/74
[2021-08-22 22:30] VITALS: BP 141/76
[2021-08-23 02:30] VITALS: BP 130/82
[2021-08-23] MEDS: IBUPROFEN 800 MG TAB PO SCH (04:10)
[2021-08-23 06:33] VITALS: BP 138/80
[2021-08-23] MEDS: DOCUSATE SODIUM 100MG CAPSULE PO SCH (08:29)
[2021-08-23] MEDS: PRENATAL VITAMINS CHEWABLE TABLET PO SCH (08:30)
--- NOTE | 2021-08-23 10:42 | DSES ---
DISCHARGE SUMMARY DATE OF ADMISSION: 08/21/2021 DATE OF DISCHARGE: 08/23/2021 DISCHARGE DIAGNOSIS: Primary section for breech presentation, postop day 2, stable condition. SURGEON: Dr. Jody Flores. [employer]: Julee Redd CNM. HISTORY: Humza is a 36 year old who underwent a primary section on 08/21/2021 due to breech presentation and term . Her surgery was uncomplicated. She had an estimated blood loss of 500 mL. She delivered a live male, 3940 grams, 8 pounds 11 ounces. Apgars were 9 and 9. Her postoperative course has been uncomplicated. Her pain has been well managed with p.o. ibuprofen. She has been out of bed for self care, radha care, and infant care. She is . Has had a consult and has continued to be successful. She is voiding without difficulty, passing flatus, tolerating p.o. fluids, and a regular diet. Does request discharge home. OBJECTIVE: Temperature 98.7, pulse 96, respirations 17, blood pressure 130/82. Preoperative CBC: Hemoglobin 10.4, hematocrit 31.8, platelets 200. Postoperative CBC: Hemoglobin 8.1, hematocrit 24.7, platelets 145. She is alert and oriented x2, smiling and talkative. Her breasts are soft and nontender. Nipples are intact. Her abdomen is fundus firm at one fingerbreadth below umbilicus. Her incision with Optifoam dressing in place. There is no new drainage. Perineum is intact. Lochia and rubra scant. Bilateral lower extremities with scant pitting edema. PLAN: Discharge patient to home today. She is to follow up at [facility] for a two week incision check and an [address] Flores. E-prescriptions for ibuprofen and Percocet have been prescribed to her pharmacy by Dr. Flores. I did review discharge instructions that include breast care, incision care, radha card, pelvic rest, activity and lifting restrictions, and danger signs to report as well as access to her care provider. She and her 's questions have all been answered, and they do request discharge home today.
== END 2021-08-23 10:45 | disposition home or self-care (01) | DRG 788 ==
LOC: M LDI 05:42 → M OBS 11:51
PROVIDERS: ADMIT Obstetrics & Gynecology; ATTEND Obstetrics & Gynecology
PROC: 10D00Z1 Extraction of Products of Conception, Low, Open Approach (ICD-10-PCS; principal; 2021-08-21 07:30)
DX: O32.1XX0 Maternal care for breech presentation, not applicable or unspecified (principal); Z37.0 Single live birth; Z3A.39 39 weeks gestation of pregnancy; O09.523 Supervision of elderly multigravida, third trimester

== ENCOUNTER → 2022-01-25 | Outpatient (REF) | payer OTHER ==
[~2022-01-25] MED LIST changes: +IBUP80TA PO; +PERCOCET PO
== END ==
LOC: M PLALAB 16:01
PROVIDERS: ATTEND Obstetrics & Gynecology
DX: R87.610 Atypical squamous cells of undetermined significance on cytologic smear of cervix (ASC-US) (principal); Z12.4 Encounter for screening for malignant neoplasm of cervix
CPT/HCPCS: 87624; G0123

== ENCOUNTER → 2022-08-27 | Outpatient (REF) | payer OTHER ==
[2022-08-27 12:34] LABS: HEMATOCRIT 37.8 % (36.0-47.0); HEMOGLOBIN 12.2 g/dl (12.0-15.5); MEAN CORPUSCULAR HEMOGLOBIN 30.7 pg (27.0-33.0); MEAN CORPUSCULAR HGB CONC 32.3 g/dl (32.0-36.5); PLATELET COUNT, AUTOMATED 262 10^3/uL (150-450); RED BLOOD COUNT 3.98 10^6/uL (4.00-5.40); WHITE BLOOD COUNT 6.1 10^3/uL (4.0-10.0)
[2022-08-27 13:25] LABS: ALBUMIN 3.5 GM/DL (3.2-5.2); ALT/SGPT 21 U/L (12-78); BILIRUBIN,TOTAL 0.4 MG/DL (0.2-1.0); BLOOD UREA NITROGEN 15 MG/DL (7-18); CALCIUM LEVEL 8.8 MG/DL (8.5-10.1); CARBON DIOXIDE LEVEL 22 MEQ/L (21-32); CHLORIDE LEVEL 109 MEQ/L (98-107); CREATININE FOR GFR 0.75 MG/DL (0.55-1.30); GLOMERULAR FILTRATION RATE > 60.0 (>60); GLUCOSE, FASTING 96 MG/DL (70-100); POTASSIUM SERUM 4.4 MEQ/L (3.5-5.1); SODIUM LEVEL 137 MEQ/L (136-145); TOTAL PROTEIN 7.3 GM/DL (6.4-8.2)
== END ==
LOC: M LABDRAWC 11:24
PROVIDERS: ATTEND Dermatology
DX: L40.0 Psoriasis vulgaris (principal); Z79.899 Other long term (current) drug therapy

== ENCOUNTER → 2023-04-10 | Outpatient (REF) | payer OTHER | LOC: M PLALAB 16:10 | PROVIDERS: ATTEND Advanced Practice Midwife | DX: Z12.4 Encounter for screening for malignant neoplasm of cervix (principal) | CPT/HCPCS: 87624; G0123 ==

== ENCOUNTER → 2023-09-13 | Outpatient (REF) | payer OTHER ==
[2023-09-13 12:01] LABS: HEMOGLOBIN 12.6 g/dl (12.0-15.5); MEAN CORPUSCULAR HEMOGLOBIN 30.7 pg (27.0-33.0); MEAN CORPUSCULAR HGB CONC 32.3 g/dl (32.0-36.5); MEAN CORPUSCULAR VOLUME 94.9 fl (80.0-96.0); PLATELET COUNT, AUTOMATED 309 10^3/uL (150-450); RED BLOOD COUNT 4.11 10^6/uL (4.00-5.40); WHITE BLOOD COUNT 5.8 10^3/uL (4.0-10.0)
[2023-09-13 12:28] LABS: ALBUMIN 3.7 G/DL (3.2-5.2); ALKALINE PHOSPHATASE 58 U/L (46-116); ALT/SGPT 19 U/L (7.0-40); AST/SGOT 9 U/L (<34); BILIRUBIN,TOTAL 0.3 MG/DL (0.3-1.2); BLOOD UREA NITROGEN 13 MG/DL (9-23); CALCIUM LEVEL 9.2 MG/DL (8.5-10.1); CARBON DIOXIDE LEVEL 23 MMOL/L (20-31); CHLORIDE LEVEL 105 MMOL/L (98-107); CREATININE FOR GFR 0.66 MG/DL (0.55-1.30); GLOMERULAR FILTRATION RATE > 60.0 (>60); GLUCOSE, FASTING 95 MG/DL (60-100); POTASSIUM SERUM 4.3 MMOL/L (3.5-5.1); SODIUM LEVEL 137 MMOL/L (136-145); TOTAL PROTEIN 7.6 G/DL (5.7-8.2)
== END ==
LOC: M LABDRAWC 11:31
PROVIDERS: ATTEND Dermatology
DX: D22.5 Melanocytic nevi of trunk (principal); Z71.89 Other specified counseling; Z79.899 Other long term (current) drug therapy

== ENCOUNTER → 2024-09-08 | Outpatient (CLI) | payer OTHER | LOC: M WHC 14:21 | PROVIDERS: ATTEND Nurse Practitioner Family | DX: N64.4 Mastodynia (principal); N63.20 Unspecified lump in the left breast, unspecified quadrant | CPT/HCPCS: 77066; G0279 ==

== ENCOUNTER → 2024-10-12 | Outpatient (REF) | payer OTHER ==
[2024-10-12 20:15] LABS: BASO % 0.8 % (0.0-1.0); EOS # 0.1 10^3/uL (0.0-0.5); EOS % 2.5 % (0.0-3.0); HEMATOCRIT 39.4 % (36.0-47.0); HEMOGLOBIN 12.9 g/dl (12.0-15.5); LYMPH # 1.7 10^3/uL (1.5-5.0); MEAN CORPUSCULAR HEMOGLOBIN 31.4 pg (27.0-33.0); MEAN CORPUSCULAR HGB CONC 32.7 g/dl (32.0-36.5); MEAN CORPUSCULAR VOLUME 95.9 fl (80.0-96.0); MONO # 0.5 10^3/uL (0.0-0.8); MONO % 8.7 % (2.0-8.0); NEUTROPHILS # 2.6 10^3/uL (1.5-8.5); NEUTROPHILS % 49.8 % (36.0-66.0); PLATELET COUNT, AUTOMATED 231 10^3/uL (150-450); RED BLOOD COUNT 4.11 10^6/uL (4.00-5.40); WHITE BLOOD COUNT 5.2 10^3/uL (4.0-10.0)
[2024-10-12 20:45] LABS: ALBUMIN 3.7 G/DL (3.2-5.2); ALKALINE PHOSPHATASE 58 U/L (35-104); ALT/SGPT 36 U/L (7.0-40); AST/SGOT 11 U/L (<34); BILIRUBIN,TOTAL 0.5 MG/DL (0.3-1.2); BLOOD UREA NITROGEN 16 MG/DL (9-23); CALCIUM LEVEL 9.4 MG/DL (8.5-10.1); CARBON DIOXIDE LEVEL 26 MMOL/L (20-31); CHLORIDE LEVEL 107 MMOL/L (98-107); CREATININE FOR GFR 0.83 MG/DL (0.55-1.30); GLOMERULAR FILTRATION RATE > 60.0 (>60); GLUCOSE, FASTING 87 MG/DL (60-100); POTASSIUM SERUM 4.7 MMOL/L (3.5-5.1); SODIUM LEVEL 140 MMOL/L (136-145); TOTAL PROTEIN 7.4 G/DL (5.7-8.2)
== END ==
LOC: M LABDRAWC 16:47
PROVIDERS: ATTEND Dermatology
DX: Z79.899 Other long term (current) drug therapy (principal)

== ENCOUNTER → 2024-11-02 | Outpatient (REF) | payer OTHER ==
[2024-11-05 13:53] LABS: QuantiFERON-TB Gold Plus NEGATIVE (NEGATIVE)
== END ==
LOC: M LAB REF 13:22
PROVIDERS: ATTEND Dermatology
DX: D22.5 Melanocytic nevi of trunk (principal); L40.0 Psoriasis vulgaris; L81.4 Other melanin hyperpigmentation; Z71.89 Other specified counseling; Z79.899 Other long term (current) drug therapy